=== PATIENT | female | born 1965 | race Caucasian/White ===

== ENCOUNTER 2017-12-15 13:50 | Emergency (ER) | payer OTHER ==
[~2017-12-15] VITALS: Ht 167.6 cm; Wt 77.1 kg
--- OUTSIDE RECORDS SUMMARY | 2017-12-15 13:52 | XMS REPORT | Summary of Care ---
Author Author [facility] Outpatient Imaging [facility] [place] Address Unknown Phone Unavailable Encounter HQ Encntr_alias(FIN) [id number] Date(s): 10/15/15 - 10/15/15 [facility] Outpatient Imaging [address] [address]- [phone] Discharge Disposition: Home or Self Care Attending Physician: Francisco Dubois MD Vital Signs No data available for this section Problem List No data available for this section Allergies, Adverse Reactions, Alerts No data available for this section Medications No data available for this section Results No data available for this section Immunizations No data available for this section Procedures No data available for this section Social History No data available for this section Assessment and Plan No data available for this section
--- OUTSIDE RECORDS SUMMARY | 2017-12-15 13:52 | XMS REPORT | Continuity of Care Document ---
Author Author [facility] Interface Address Unknown Phone Unavailable Problems Problem Status Onset Date Classification Date Reported Comments Source Z12.31 - ENCNTR SCREEN MAMMOGRAM FOR MA Active 07/16/2015 MAKENNA Bauer Final: Other Screening Mammogram 09/24/2014 MAKENNA Bauer Medications Medication Details Route Status Patient Instructions Ordering Provider Order Date Source Allergies, Adverse Reactions, Alerts Substance Category Reaction Severity Reaction type Status Date Reported Comments Source Immunizations Immunization Date Given Site Status Last Updated Comments Source Results Order Name Results Value Reference Range Date Interpretation Comments Source Digital Mammo Screening [place] Digital Mammo Screening [place] - DIGITAL MAMMO SCREENING [place] BILATERAL DIGITAL SCREENING MAMMOGRAM WITH CAD: 10/15/2015 CLINICAL: Routine. Current study was evaluated with a Computer Aided Detection (CAD) system. Comparison is made to exams dated: 09/21/2014 mammogram - [facility], 07/31/2013 mammogram, 07/17/2012 mammogram - [facility] [place], 07/07/2011 mammogram and 07/12/2010 mammogram - [facility]. The tissue of both breasts is heterogeneously dense, which could obscure detection of small masses. There is a benign calcification in the right breast. No significant masses, calcifications, or other findings are seen in either breast. There has been no significant interval change. IMPRESSION: BENIGN There is no mammographic evidence of malignancy. A 1 year screening mammogram is recommended. Fredrick Nelson M.D. cm/penrad:10/18/2015 10:15:18 Ed Teacher: Sarah ORDOÑEZ(R)(M), [facility] This exam was dictated and interpreted by [id number] for TYREE Huertas 15. letter sent: Normal exam Mammogram BI-RADS: 2 Benign 10/15/2015 - - Read by: Aleksandar Bardales MD Dictated Date/time: 10/18/15 10:15 Electronically Signed by: Aleksandar Bardales MD 10/18/15 10:15 [facility] Mammo Screening [place] Digital Mammo Screening [place] - DIGITAL MAMMO SCREENING [place] BILATERAL DIGITAL SCREENING MAMMOGRAM WITH CAD: 09/21/2014 CLINICAL: Routine. Current study was evaluated with a Computer Aided Detection (CAD) system. Comparison is made to exams dated: 07/31/2013 mammogram, 07/17/2012 mammogram - [facility] [place], 07/07/2011 mammogram and 07/12/2010 mammogram - [facility]. The tissue of both breasts is heterogeneously dense, which could obscure detection of small masses. There is a benign calcification in the right breast. No significant masses, calcifications, or other findings are seen in either breast. There has been no significant interval change. IMPRESSION: BENIGN There is no mammographic evidence of malignancy. A 1 year screening mammogram is recommended. Kourtney Steel M.D. jt/penrad:09/21/2014 10:31:45 Ed Teacher: Deysi Jim [facility] This exam was dictated and interpreted by [id number] for [facility]. letter sent: Normal exam Mammogram BI-RADS: 2 Benign 09/21/2014 - - Read by: Kourtney Steel MD Dictated Date/time: 09/21/14 10:31 Electronically Signed by: Kourtney Steel MD 09/21/14 10:31 FINAL REPORT MAKENNA [place] Digital Mammo Screening [place] Digital Mammo Screening [place] - DIGITAL MAMMO SCREENING [place] BILATERAL DIGITAL SCREENING MAMMOGRAM WITH CAD: 07/31/2013 CLINICAL: Annual Screening. Current study was evaluated with a Computer Aided Detection (CAD) system. Comparison is made to exams dated: 07/12/2010 mammogram, 07/07/2011 mammogram - [facility] and 07/17/2012 mammogram - [facility] [place]. The tissue of both breasts is heterogeneously dense, which could obscure detection of small masses. No significant masses, calcifications, or other findings are seen in either breast. There has been no significant interval change. IMPRESSION: NEGATIVE There is no mammographic evidence of malignancy. A screening mammogram in one year is recommended. Dr. Irma Morgan D.O. ht/penrad:07/31/2013 15:31:32 Ed Teacher: Birgit Ramirez RT(R)(M), [facility] [place] [place] This exam was dictated and interpreted by [id number] for Raoul Boles. letter sent: Normal exam Mammogram BI-RADS: 1 Negative 07/31/2013 - - Read by: Irma Morgan DO Dictated Date/time: 07/31/13 15:31 Electronically Signed by: Irma Morgan DO 07/31/13 15:31 FINAL REPORT MAKENNA [place]leg[place] Digital Mammo Screening [place] Digital Mammo Screening [place] - DIGITAL MAMMO SCREENING [place] BILATERAL DIGITAL SCREENING MAMMOGRAM WITH CAD: 07/17/2012 CLINICAL: Routine. Current study was evaluated with a Computer Aided Detection (CAD) system. Comparison is made to exam dated: 07/12/2010 mammogram - [facility]. The tissue of both breasts is heterogeneously dense. This may lower the sensitivity of mammography. No significant masses, calcifications, or other findings are seen in either breast. There has been no significant interval change. IMPRESSION: NEGATIVE There is no mammographic evidence of malignancy. A screening mammogram in one year is recommended. Dr. Bam Fuentes M.D. eoc/penrad:07/17/2012 15:42:26 Ed Teacher: José Manuel King RT(R)(M), [facility] [place] letter sent: Normal exam Mammogram BI-RADS: 1 Negative 07/17/2012 - - Read by: Bam Fuentes Dictated Date/time: 07/17/12 15:42 Electronically Signed by: Bam Fuentes MD 07/17/12 15:42 FINAL REPORT MAKENNA [place] Vital Signs Vital Sign Value Date Comments Source Encounters Location Location Details Encounter Type Encounter Number Reason For Visit Attending Provider ADM Date DC Date Status Source [facility] Outpatient Imaging [facility] [place] [facility] [id number] Britton Mcguire 07/31/2013 08/01/2013 MAKENNA Gallego [facility] Outpatient Imaging [place] [facility] [id number] David Parada 09/21/2014 09/22/2014 MAKENNA Bauer [facility] Outpatient Imaging [place] [facility] [id number] Francisco Dubois 10/15/2015 10/16/2015 MAKENNA Bauer Procedures Procedure Code Date Perfomer Comments Source
--- OUTSIDE RECORDS SUMMARY | 2017-12-15 13:52 | XMS REPORT | Summary of Care ---
Author Organization Unknown Address Unknown Phone Unavailable Encounter HQ Encntr_alijohn([facility]) [id number] Date(s): 07/31/13 - 07/31/13 [facility] Outpatient Imaging - [address] Discharge Disposition: Home Physician Attending: Britton Mcguire MD Reason for Visit V76.12 - SCREEN MAMMOGRA Problem List No data available for this section Allergies, Adverse Reactions, Alerts No data available for this section Medications No data available for this section Medications Administered During Your Visit No data available for this section Immunizations No data available for this section
--- OUTSIDE RECORDS SUMMARY | 2017-12-15 13:52 | XMS REPORT | Summary of Care ---
Author Author [facility] Outpatient Imaging [facility] Outpatient [facility] Address Unknown Phone Unavailable Encounter HQ Encntr_alias(FIN) [id number] Date(s): 09/21/14 - 09/21/14 [facility] Outpatient Imaging [address] [address] [phone] Final: Other Screening Mammogram Discharge Disposition: Home Attending Physician: David Parada MD Vital Signs No data available for [...]
[2017-12-15] MEDS ORDERED: HYDROCODONE/APAP 5MG-325MG TAB PO NR (14:15)
--- NOTE | 2017-12-15 15:23 | Diagnostic Imaging Report ---
EXAMINATION: CHEST 2 VIEWS INDICATION: ^left ant chest pain s/p fall, Focal pain left clavicle COMPARISON: None FINDINGS: PA and lateral views TUBES and LINES: None. LUNGS: Lungs are well inflated. Lungs are clear. There is no evidence of pneumonia or pulmonary edema. PLEURA: No pleural effusion or pneumothorax. HEART AND MEDIASTINUM: The cardiomediastinal silhouette is unremarkable. BONES AND SOFT TISSUES: No acute osseous lesion. Soft tissues are unremarkable. UPPER ABDOMEN: No free air under the diaphragm. IMPRESSION: 1. No acute thoracic abnormality. 2. Majority of the left clavicle is included and unremarkable. Signed by: Dr. Marcus Norton M.D. on 12/15/2017 3:20 PM
--- NOTE | 2017-12-15 15:24 | Diagnostic Imaging Report ---
KNEE RIGHT THREE VIEWS - 3 views HISTORY: Pain. Fell off the ladder. COMPARISON: None available. FINDINGS: Bones: No acute displaced fracture. Osseous alignment is within normal limits. Joints: Trace tricompartmental degenerative changes. Soft tissues: The soft tissues appear unremarkable. IMPRESSION: No acute radiographic abnormality. Signed by: Dr. Marcus Norton M.D. on 12/15/2017 3:21 PM
[2017-12-15] MEDS ORDERED: CYCLOBENZAPRINE5 MG PO (15:31)
[2017-12-15] MEDS ORDERED: TYLENOL WITH C1 EACH PO (15:31)
== END 2017-12-15 16:08 | disposition home or self-care (01) ==
LOC: ER 13:50
DX: S40.012A Contusion of left shoulder, initial encounter (principal); R07.89 Other chest pain; S80.01XA Contusion of right knee, initial encounter; W11.XXXA Fall on and from ladder, initial encounter; M79.7 Fibromyalgia
CPT/HCPCS: 71046; 99283